=== PATIENT | male | born 1935 | race Caucasian/White ===

== ENCOUNTER 2020-09-04 09:29 | Inpatient (IN) ==
[2020-09-05] MEDS ORDERED: Nitroglycerin 0.4 MG TAB.SUBL SL PRN (12:31)
[2020-09-05] MEDS ORDERED: Dextrose Gel 15 GM/37.5 ML TUBE PO PRN ×2 (12:35)
[2020-09-05] MEDS ORDERED: *HR* Dextrose 50 % in Water (Vial) 50 ML VIAL IVP PRN (12:35)
[2020-09-05] MEDS ORDERED: D5% in Water 1,000 ML IVC PRN (12:35)
[2020-09-05] MEDS: Insulin LISPRO 300 UNITS/3 ML VIAL SUBQ SCH ×3 (13:03→20:36)
[2020-09-05] MEDS: Apixaban 5 MG TABLET PO SCH (20:33)
[2020-09-05] MEDS: Aspirin Enteric Coated 81 MG Tablet PO SCH (20:33)
[2020-09-05] MEDS: Dorzolamide OPTH 10 ML BOTTLE BOTH EYES SCH (20:35)
[2020-09-06 04:32] LABS: Basophils % 0.5 %; Eosinophils # 0.1 K/mcL (0.0-0.6); Eosinophils % 1.8 %; Hematocrit 38.2 % (37.5-50.1); Hemoglobin 12.1 g/dL (12.9-16.9); Immature Granulocytes % 0.7 % (0-4); Lymphocytes % 12.5 %; Mean Corpuscular HGB Conc 31.7 g/dL (31.6-35.5); Mean Corpuscular Hemoglobin 28.9 pg (28.0-33.3); Mean Corpuscular Volume 91.2 fL (83.0-100.0); Mean Platelet Volume 10.7 fL (9.4-12.4); Monocytes # 0.5 K/mcL (0.0-1.3); Monocytes % 6.9 %; Neutrophils # 5.9 K/mcL (1.6-8.9); Platelet Count 139 K/mcL (140-400); Red Blood Count 4.19 M/mcL (4.19-5.50); Red Cell Distribution Width 12.9 % (11.5-14.5); Segmented Neutrophils % 77.6 %; White Blood Count 7.6 K/mcL (4.3-11.1)
[2020-09-06 04:42] LABS: Platelet Estimate Normal (Normal)
[2020-09-06 04:50] LABS: Albumin 3.2 g/dL (3.5-5.7); Albumin/Globulin Ratio 1.1 (1.1-2.2); Bilirubin,Total 0.6 mg/dL (0.3-1.0); Calcium 9.2 mg/dL (8.6-10.3); Globulin 2.8 g/dL (2.4-3.5); Magnesium 1.7 mg/dL (1.6-2.6); Potassium 4.4 mEq/L (3.5-5.1)
[2020-09-06] MEDS ORDERED: amLODIPine 5 MG TABLET PO SCH (09:00)
[2020-09-06] MEDS: Insulin LISPRO 300 UNITS/3 ML VIAL SUBQ SCH ×4 (09:11→20:30)
[2020-09-06] MEDS: Apixaban 5 MG TABLET PO SCH ×2 (09:12→20:28)
[2020-09-06] MEDS: Dorzolamide OPTH 10 ML BOTTLE BOTH EYES SCH ×2 (09:13→20:31)
[2020-09-06] MEDS: levoFLOXacin 250 MG TABLET PO SCH (09:15)
[2020-09-06] MEDS: Isosorbide MONOnitrate (24 HR) 30 MG TAB.ER.24H PO SCH (09:15)
[2020-09-06] MEDS: Insulin DETEMIR 100 UNIT/ML X5UNITS SUBQ SCH (09:20)
[2020-09-06] MEDS ORDERED: 0.9 % Sodium Chloride 500 ML IVC ONE (11:52)
[2020-09-06] MEDS ORDERED: 0.9 % Sodium Chloride 1,000 ML IVC SCH ×2 (16:00→16:15)
[2020-09-06] MEDS: Aspirin Enteric Coated 81 MG Tablet PO SCH (20:28)
[2020-09-07] MEDS: Dorzolamide OPTH 10 ML BOTTLE BOTH EYES SCH (08:17)
[2020-09-07] MEDS: Insulin LISPRO 300 UNITS/3 ML VIAL SUBQ SCH ×4 (08:19→21:10)
[2020-09-07] MEDS: Apixaban 5 MG TABLET PO SCH ×2 (08:20→21:09)
[2020-09-07] MEDS: amLODIPine 5 MG TABLET PO SCH (08:20)
[2020-09-07] MEDS: levoFLOXacin 250 MG TABLET PO SCH (08:21)
[2020-09-07] MEDS: Insulin DETEMIR 100 UNIT/ML X5UNITS SUBQ SCH (08:22)
[2020-09-07] MEDS: Isosorbide MONOnitrate (24 HR) 30 MG TAB.ER.24H PO SCH (08:22)
[2020-09-07] MEDS: Aspirin Enteric Coated 81 MG Tablet PO SCH (21:08)
[2020-09-08] MEDS: Dorzolamide OPTH 10 ML BOTTLE BOTH EYES SCH ×3 (00:50→21:14)
[2020-09-08] MEDS: Insulin LISPRO 300 UNITS/3 ML VIAL SUBQ SCH ×4 (08:12→21:14)
[2020-09-08] MEDS: levoFLOXacin 250 MG TABLET PO SCH (08:13)
[2020-09-08] MEDS: Insulin DETEMIR 100 UNIT/ML X5UNITS SUBQ SCH (08:13)
[2020-09-08] MEDS: Isosorbide MONOnitrate (24 HR) 30 MG TAB.ER.24H PO SCH (08:13)
[2020-09-08] MEDS: Apixaban 5 MG TABLET PO SCH ×2 (08:14→21:13)
[2020-09-08] MEDS: amLODIPine 5 MG TABLET PO SCH (08:14)
[2020-09-08] MEDS: Aspirin Enteric Coated 81 MG Tablet PO SCH (21:13)
[2020-09-09] MEDS: Insulin LISPRO 300 UNITS/3 ML VIAL SUBQ SCH ×4 (07:46→20:55)
[2020-09-09] MEDS: Apixaban 5 MG TABLET PO SCH ×2 (07:49→20:52)
[2020-09-09] MEDS: Isosorbide MONOnitrate (24 HR) 30 MG TAB.ER.24H PO SCH ×2 (07:49→20:54)
[2020-09-09] MEDS: levoFLOXacin 250 MG TABLET PO SCH (07:49)
[2020-09-09] MEDS: Dorzolamide OPTH 10 ML BOTTLE BOTH EYES SCH ×2 (07:52→20:53)
[2020-09-09] MEDS: Insulin DETEMIR 100 UNIT/ML X5UNITS SUBQ SCH ×2 (10:17→20:55)
[2020-09-09] MEDS: Aspirin Enteric Coated 81 MG Tablet PO SCH (20:52)
[2020-09-09] MEDS: amLODIPine 5 MG TABLET PO SCH (20:54)
[2020-09-10] MEDS: Insulin LISPRO 300 UNITS/3 ML VIAL SUBQ SCH ×4 (08:49→22:25)
[2020-09-10] MEDS: Insulin DETEMIR 100 UNIT/ML X5UNITS SUBQ SCH ×2 (08:49→22:29)
[2020-09-10] MEDS: Dorzolamide OPTH 10 ML BOTTLE BOTH EYES SCH ×2 (08:51→22:28)
[2020-09-10] MEDS: Apixaban 5 MG TABLET PO SCH ×2 (08:51→22:24)
[2020-09-10] MEDS: Aspirin Enteric Coated 81 MG Tablet PO SCH (22:24)
[2020-09-10] MEDS: amLODIPine 5 MG TABLET PO SCH (22:25)
[2020-09-10] MEDS: Isosorbide MONOnitrate (24 HR) 30 MG TAB.ER.24H PO SCH (22:25)
[2020-09-11] MEDS: Insulin LISPRO 300 UNITS/3 ML VIAL SUBQ SCH ×4 (08:02→21:12)
[2020-09-11 08:25] LABS: Hematocrit 39.9 % (37.5-50.1); Hemoglobin 12.5 g/dL (12.9-16.9); Mean Corpuscular HGB Conc 31.3 g/dL (31.6-35.5); Mean Corpuscular Hemoglobin 28.8 pg (28.0-33.3); Mean Corpuscular Volume 91.9 fL (83.0-100.0); Mean Platelet Volume 10.1 fL (9.4-12.4); Platelet Count 185 K/mcL (140-400); Red Blood Count 4.34 M/mcL (4.19-5.50); Red Cell Distribution Width 12.8 % (11.5-14.5); White Blood Count 12.8 K/mcL (4.3-11.1)
[2020-09-11 08:42] LABS: Albumin 3.6 g/dL (3.5-5.7); Albumin/Globulin Ratio 1.1 (1.1-2.2); Calcium 9.5 mg/dL (8.6-10.3); Globulin 3.4 g/dL (2.4-3.5); Magnesium 1.7 mg/dL (1.6-2.6); Potassium 4.1 mEq/L (3.5-5.1)
[2020-09-11] MEDS: Apixaban 5 MG TABLET PO SCH ×2 (09:46→21:01)
[2020-09-11] MEDS: Insulin DETEMIR 100 UNIT/ML X5UNITS SUBQ SCH ×2 (09:47→21:01)
[2020-09-11] MEDS: Dorzolamide OPTH 10 ML BOTTLE BOTH EYES SCH ×2 (09:47→21:00)
[2020-09-11 16:12] LABS: Bilirubin,Urine Negative (Negative); Blood,Urine Trace-lysed (Negative); Clarity,Urine Clear (Clear); Color,Urine Yellow (Yellow); Glucose,Urine (UA) >=1000 mg/dL (Normal); Ketones,Urine Negative (Negative); Leukocyte Esterase,Urine Negative (Negative); Nitrite,Urine Negative (Negative); PH,Urine 5.5 pH Units (5.0-8.0); Protein,Urine 100 mg/dL (Neg-Trace); Specific Gravity,Urine 1.025 (1.010-1.025); Urobilinogen,Urine Normal (Normal)
[2020-09-11 16:21] LABS: RBC,Urine 0-3 per hpf (0-3); WBC,Urine 0-3 per hpf (0-3)
[2020-09-11] MEDS: Isosorbide MONOnitrate (24 HR) 30 MG TAB.ER.24H PO SCH (21:01)
[2020-09-11] MEDS: amLODIPine 5 MG TABLET PO SCH (21:01)
[2020-09-11] MEDS: Aspirin Enteric Coated 81 MG Tablet PO SCH (21:01)
[2020-09-12] MEDS: Insulin LISPRO 300 UNITS/3 ML VIAL SUBQ SCH ×4 (09:42→19:53)
[2020-09-12] MEDS: Apixaban 5 MG TABLET PO SCH ×2 (09:42→19:54)
[2020-09-12] MEDS: Insulin DETEMIR 100 UNIT/ML X5UNITS SUBQ SCH ×2 (09:52→19:52)
[2020-09-12] MEDS: Dorzolamide OPTH 10 ML BOTTLE BOTH EYES SCH ×2 (09:52→19:52)
[2020-09-12] MEDS: Isosorbide MONOnitrate (24 HR) 30 MG TAB.ER.24H PO SCH (19:53)
[2020-09-12] MEDS: Aspirin Enteric Coated 81 MG Tablet PO SCH (19:54)
[2020-09-12] MEDS: amLODIPine 5 MG TABLET PO SCH (19:54)
[2020-09-13] MEDS: Insulin LISPRO 300 UNITS/3 ML VIAL SUBQ SCH ×4 (08:39→20:25)
[2020-09-13] MEDS: Dorzolamide OPTH 10 ML BOTTLE BOTH EYES SCH ×2 (09:20→20:25)
[2020-09-13] MEDS: Apixaban 5 MG TABLET PO SCH ×2 (09:21→20:23)
[2020-09-13] MEDS: Insulin DETEMIR 100 UNIT/ML X5UNITS SUBQ SCH ×2 (09:21→20:27)
[2020-09-13] MEDS: Aspirin Enteric Coated 81 MG Tablet PO SCH (20:23)
[2020-09-13] MEDS: amLODIPine 5 MG TABLET PO SCH (20:24)
[2020-09-13] MEDS: Isosorbide MONOnitrate (24 HR) 30 MG TAB.ER.24H PO SCH (20:24)
[2020-09-14 05:01] LABS: Basophils % 0.5 %; Eosinophils # 0.2 K/mcL (0.0-0.6); Eosinophils % 2.9 %; Hematocrit 37.1 % (37.5-50.1); Hemoglobin 11.5 g/dL (12.9-16.9); Immature Granulocytes % 0.4 % (0-4); Lymphocytes # 1.1 K/mcL (0.6-4.6); Lymphocytes % 14.6 %; Mean Corpuscular Hemoglobin 28.7 pg (28.0-33.3); Mean Corpuscular Volume 92.5 fL (83.0-100.0); Mean Platelet Volume 10.7 fL (9.4-12.4); Monocytes # 0.6 K/mcL (0.0-1.3); Monocytes % 7.2 %; Neutrophils # 5.7 K/mcL (1.6-8.9); Platelet Count 179 K/mcL (140-400); Red Blood Count 4.01 M/mcL (4.19-5.50); Red Cell Distribution Width 12.8 % (11.5-14.5); Segmented Neutrophils % 74.4 %; White Blood Count 7.6 K/mcL (4.3-11.1)
[2020-09-14 05:16] LABS: Calcium 9.4 mg/dL (8.6-10.3); Potassium 4.2 mEq/L (3.5-5.1)
[2020-09-14 07:39] VITALS: BP 161/82
[2020-09-14] MEDS: Apixaban 5 MG TABLET PO SCH (08:14)
[2020-09-14] MEDS: Insulin DETEMIR 100 UNIT/ML X5UNITS SUBQ SCH (08:15)
[2020-09-14] MEDS: Dorzolamide OPTH 10 ML BOTTLE BOTH EYES SCH (08:16)
[2020-09-14] MEDS: Insulin LISPRO 300 UNITS/3 ML VIAL SUBQ SCH ×2 (08:16→12:40)
== END 2020-09-14 14:44 | disposition home health service (06) | DRG 945 ==
LOC: INPGRE 09-05 12:23
PROVIDERS: ADMIT Family Medicine; ATTEND Family Medicine